=== PATIENT | female | born 1970 | race Caucasian/White ===

== ENCOUNTER → 2016-09-15 | Outpatient (CLI) | payer BC | END | disposition home or self-care (01) | LOC: C.PAPS 09:47 | PROVIDERS: ATTEND Obstetrics & Gynecology | DX: Z01.419 Encounter for gynecological examination (general) (routine) without abnormal findings (principal) ==

== ENCOUNTER → 2016-10-01 | Outpatient (CLI) | payer BC ==
--- NOTE | 2016-10-01 15:58 | MAMMOGRAPHY REPORT ---
BILATERAL DIGITAL DIAGNOSTIC MAMMOGRAM TOMOSYNTHESIS WITH CAD AND TARGETED RIGHT ULTRASOUND: 7 CLINICAL HISTORY: The patient reports an area of focal right breast pain since May 2015, which h as nearly completely resolved in the last 3-4 weeks. She also reports a possible lump in the region which feels less prominent now. She reports that her physician believes the pain may be due to cost ochondritis. TECHNIQUE: Breast tomosynthesis in addition to standard 2D mammography was performed. Current study was also evaluated with a Computer Aided Detection (CAD) system. Bilateral CC and MLO 2-D and elieen synthesis images were obtained. COMPARISON: Comparison is made to exams dated: 09/28/2015 mammogram, 09/27/2014 mammogram, 09/26/2013 mammogram, 09/24/2012 mammogram, 09/23/2011 mammogram, and 09/19/2010 mammogram - [facility]. BREAST COMPOSITION: The tissue of both breasts is heterogeneously dense, which may obscure small ma sses. FINDINGS: A triangle marker geiger the site of pain in the right 3:00 breast. No suspicious masses or other suspicious mammographic abnormalities are noted in the region. The remainder of both breas ts are stable compared to prior exams, without suspicious masses, calcifications, or areas of paulo ectural distortion noted. Targeted ultrasound was performed of the area of prior pain and possible lump pointed out by the pat ient, in the right breast at 3:30, approximately 6 cm from the nipple (with arms down). Sonographic ally normal tissue is seen in this region, without evidence of a mass or other suspicious sonographi c abnormality. IMPRESSION: ACR BI-RADS CATEGORY 2: BENIGN, TARGETED ULTRASOUND ACR BI-RADS CATEGORY 2: BENIGN No suspicious mammographic or sonographic abnormality at the site of right breast pain which has cur rently resolved. There is no mammographic or targeted sonographic evidence of malignancy. Recommen d clinical follow-up, and recommend routine bilateral screening mammograms in one year. The patient has been verbally notified of the results. Approximately 10% of breast cancers are not detected with mammography. A negative mammographic repor t should not delay biopsy if a clinically suggestive mass is present. Ne Mohan M.D. ah/:10/01/2016 14:53:51 Commutator Tester: Guerita Londono RT(R)(M), [facility] letter sent: Normal / BI-RADS Code: ACR BI-RADS Category 2: Benign Ultrasound BI-RADS: ACR BI-RADS Category 2: Benign
== END | disposition home or self-care (01) ==
LOC: C.MAMM 13:57
PROVIDERS: ATTEND Obstetrics & Gynecology
DX: N64.4 Mastodynia (principal)

== ENCOUNTER → 2017-10-23 | Outpatient (CLI) | payer BC ==
--- NOTE | 2017-10-26 12:42 | MAMMOGRAPHY REPORT ---
BILATERAL DIGITAL SCREENING MAMMOGRAM TOMOSYNTHESIS WITH CAD: 10/23/2017 CLINICAL HISTORY: Routine screening. Patient has no complaints. TECHNIQUE: Breast tomosynthesis in addition to standard 2D mammography was performed. Current study was also evaluated with a Computer Aided Detection (CAD) system. COMPARISON: Comparison is made to exams dated: 10/01/2016 ultrasound, 09/28/2015 mammogram, 09/27/2014 m ammogram, 09/26/2013 mammogram, 09/24/2012 mammogram, and 09/23/2011 mammogram - [facility]. BREAST COMPOSITION: The tissue of both breasts is heterogeneously dense, which may obscure small mas ses. FINDINGS: No suspicious masses, calcifications, or areas of architectural distortion are noted in ei ther breast. There has been no significant interval change compared to prior exams. IMPRESSION: ACR BI-RADS CATEGORY 1: NEGATIVE There is no mammographic evidence of malignancy. A 1 year screening mammogram is recommended. The pa tient will receive written notification of the results. Approximately 10% of breast cancers are not detected with mammography. A negative mammographic report should not delay biopsy if a clinically suggestive mass is present. Ne Mohan M.D. ah/:10/23/2017 15:16:25 Veneer Marker: Ciarra BARRAGAN(R)(M), [facility] letter sent: Normal 1/2 BI-RADS Code: ACR BI-RADS Category 1: Negative
== END | disposition home or self-care (01) ==
LOC: C.MAMM 14:16
PROVIDERS: ATTEND Obstetrics & Gynecology
DX: Z12.31 Encounter for screening mammogram for malignant neoplasm of breast (principal)

== ENCOUNTER 2024-08-09 17:41 | Inpatient (IN) ==
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
[2024-08-09 18:16] LABS: Basophils # (auto) 0.02 K/uL (0.00-0.20); Basophils % (auto) 0.1 %; Eosinophils # (auto) 0.01 K/uL (0.00-0.50); Eosinophils % (auto) 0.1 %; Hematocrit (blood only) 39.1 % (37.0-47.0); Hemoglobin 13.5 g/dl (12.0-16.0); Immature Granulocytes # (auto) 0.05 K/uL (0.01-0.20); Immature Granulocytes % (auto) 0.3 %; Lymphocytes # (auto) 1.23 K/uL (1.20-3.40); Lymphocytes % (auto) 8.2 %; Mean Corpuscular Hemoglobin 28.8 pg (25.0-34.0); Mean Corpuscular Hgb Conc 34.5 g/dL (32.0-36.0); Mean Corpuscular Volume 83.5 fL (80.0-100.0); Mean Platelet Volume 9.8 fL (9.4-12.4); Monocytes # (auto) 0.57 K/uL (0.11-0.59); Monocytes % (auto) 3.8 %; Neutrophils # (auto) 13.18 K/uL (1.40-6.50); Neutrophils % (auto) 87.5 %; Platelet Count 287 K/uL (130-400); RDW Coefficient of Variation 12.2 % (11.5-14.5); RDW Standard Deviation 36.7 fL (36.4-46.3); Red Blood Count 4.68 M/uL (4.20-5.40); White Blood Count 15.06 K/ul (4.8-10.8)
[2024-08-09] MEDS: SODIUM CHLORIDE 0.9% 1,000 ML IV ONE (18:20)
[2024-08-09] MEDS ORDERED: MoRPHine SULFATE 4 MG/ML 1 ML CARP\\VIAL IV PRN ×2 (18:29→21:14)
[2024-08-09] MEDS ORDERED: ONDANSETRON INJ 2 MG/ML 2 ML VIAL IV PRN (18:29)
[2024-08-09] MEDS ORDERED: MoRPHine SULFATE 2 MG/ML CARP IV PRN ×2 (18:29→21:14)
[2024-08-09 18:34] LABS: Albumin Globulin Ratio 1.3 (0.9-2); Albumin Level 4.4 gm/dl (3.4-5.0); Calcium 9.7 mg/dl (8.6-10.3); Creatinine Clr Calc Pharmacy 131.3 ml/min; Globulin 3.3 gm/dl (2.5-4.0); Potassium 3.7 mmol/L (3.5-5.1); Total Protein 7.7 gm/dl (6.0-8.3)
[2024-08-09] MEDS: ACETAMINOPHEN 1,000 MG/100 ML VIAL IV STA (18:40)
[2024-08-09] MEDS: PIPERACILLIN/TAZOBACTAM 4.5 GM/100 ML BAG IV ONE (18:57)
[2024-08-09 19:06] LABS: Appearance Urine Clear (Clear); Bacteria Urine Automated None Seen (None Seen); Bilirubin Urine Negative (Negative); Blood Urine Trace (Negative); Cast Urine Automated 0-2 /lpf (0-2); Color Urine Yellow; Epithelial Cell Urine Auto 0-2 /hpf (0-2); Glucose Urine UA Negative (Negative); Ketones Urine Negative (Negative); Leukocyte Esterase Urine Negative (Negative); Nitrite Urine Negative (Negative); Protein Urine 1+ (Negative); RBC Urine Automated 0-2 /hpf (0-2); Specific Gravity Urine > 1.045 (1.000-1.030); Urobilinogen Urine Negative (Negative); WBC Urine Automated 0-5 /hpf (0-5)
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
[2024-08-09] MEDS ORDERED: ACETAMINOPHEN 325 MG TAB PO PRN (21:14)
[2024-08-09] MEDS ORDERED: SODIUM CHLORIDE 0.9% 1,000 ML IV SCH (21:14)
[2024-08-09] MEDS: SODIUM CHLORIDE 0.9% 1,000 ML IV SCH (21:26)
[2024-08-09 21:29] LABS: Pregnancy Test, Serum Negative (Negative)
[2024-08-10] MEDS: PIPERACILLIN/TAZOBACTAM 4.5 GM/100 ML BAG IV SCH (00:15)
[2024-08-10 03:37] LABS: Adenovirus F 40/41 PCR Not Detected (NotDetected); Astrovirus PCR Not Detected (NotDetected); Campylobacter PCR Not Detected (NotDetected); Cryptosporidium PCR Not Detected (NotDetected); Cyclospora cayetanensis PCR Not Detected (NotDetected); Entamoeba histolytica PCR Not Detected (NotDetected); Enteroaggregative E.coli(EAEC) Not Detected (NotDetected); Enteropathogenic E.coli (EPEC) Not Detected (NotDetected); Enterotoxigenic E.coli (ETEC) Not Detected (NotDetected); Giardia lamblia PCR Not Detected (NotDetected); Norovirus GI/GII PCR Not Detected (NotDetected); Plesiomonas shigelloides PCR Not Detected (NotDetected); Rotavirus A PCR Not Detected (NotDetected); Salmonella PCR Not Detected (NotDetected); Sapovirus PCR Not Detected (NotDetected); Shiga-like Toxin E.coli (STEC) Not Detected (NotDetected); Shigella/Enteroinvasive E.coli Not Detected (NotDetected); Vibrio cholerae PCR Not Detected (NotDetected); Vibrio species PCR Not Detected (NotDetected); Yersinia enterocolitica PCR Not Detected (NotDetected)
[2024-08-10 06:10] LABS: Hematocrit (blood only) 34.6 % (37.0-47.0); Hemoglobin 11.6 g/dl (12.0-16.0); Mean Corpuscular Hemoglobin 28.6 pg (25.0-34.0); Mean Corpuscular Hgb Conc 33.5 g/dL (32.0-36.0); Mean Corpuscular Volume 85.4 fL (80.0-100.0); Mean Platelet Volume 10.1 fL (9.4-12.4); Platelet Count 238 K/uL (130-400); RDW Coefficient of Variation 12.1 % (11.5-14.5); RDW Standard Deviation 37.5 fL (36.4-46.3); Red Blood Count 4.05 M/uL (4.20-5.40); White Blood Count 8.48 K/ul (4.8-10.8)
[2024-08-10 06:26] LABS: Albumin Level 3.5 gm/dl (3.4-5.0); BUN Creatinine Ratio 27.9 (10-20); Bilirubin Direct 0.3 mg/dl (0-0.2); Bilirubin,Total 1.7 mg/dl (0.2-1.0); Calcium 8.6 mg/dl (8.6-10.3); Creatinine Clr Calc Pharmacy 152.6 ml/min; Potassium 3.5 mmol/L (3.5-5.1)
--- NOTE | 2024-08-10 07:51 | Surgery Progress Note ---
Date of Service August 10, 2024 Assessment & Plan (1) Colitis with abscess: Plan: feeling slight improvement in overall and pain VSS afebrile, wbc wnl 8 (15) abd soft , TTP Right and left LQ denies dysuria + loose stools, denies noting blood continue NPO , IV fluids/abx at this time gen surg will follow as above. 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 would stay on sips/chips only another 24 hours. no urgent indication for surgical intervention. will continue to follow along Admission and Anticipated Discharge Date Admission Date: August 09, 2024 Subjective pt reports feeling slightly better overall and slight pain improvement this AM vs admission Review of Systems Constitutional: no fever and no chills Respiratory: no dyspnea Cardiovascular: no chest pain Gastrointestinal: + abdominal pain and + diarrhea/loose st ools; no nausea and no vomiting Genitourinary: no dysuria Physical Exam Constitutional: cooperative and comfortable; no acute distress Respiratory: normal respiratory effort; no respiratory distress Cardiovascular: Rate/Rhythm: regular rate Gastrointestinal (Abdomen): Inspection/Auscultation: abdomen not distended Percussion/Palpation: + abdomen tender and abdomen soft Results & Data Vital Signs (Past 12 Hours) Vital Signs Temp Pulse Pulse Resp BP Pulse Ox O2 Del Method 08/10/24 07:16 98.4 F 68 18 98/59 L 99 Room Air 08/09/24 23:12 98.2 F 68 12 106/65 100 Room Air 08/09/24 20:25 105/61 08/09/24 20:00 61 16 99 Room Air Results CBC w Diff Results: RBC 4.05 M/uL (4.20-5.40) L 08/10/24 WBC 8.48 K/ul (4.8-10.8) 08/10/24 Hgb 11.6 g/dl (12.0-16.0) L 08/10/24 Hct 34.6 % (37.0-47.0) L 08/10/24 MCV 85.4 fL (80.0-100.0) 08/10/24 MCH 28.6 pg (25.0-34.0) 08/10/24 MCHC 33.5 g/dL (32.0-36.0) 08/10/24 RDW Standard Deviation 37.5 fL (36.4-46.3) 08/10/24 RDW Coefficient of Variation 12.1 % (11.5-14.5) 08/10/24 Plt Count 238 K/uL (130-400) 08/10/24 MPV 10.1 fL (9.4-12.4) 08/10/24 Neutrophils (%) (Auto) 87.5 % 08/09/24 Lymphocytes (%) (Auto) 8.2 % 08/09/24 Monocytes # (Auto) 0.57 K/uL (0.11-0.59) 08/09/24 Eosinophils # (Auto) 0.01 K/uL (0.00-0.50) 08/09/24 Immature Granulocyte % (Auto) 0.3 % 08/09/24 Neutrophils # (Auto) 13.18 K/uL (1.40-6.50) H 08/09/24 Lymphocytes # (Auto) 1.23 K/uL (1.20-3.40) 08/09/24 Monocytes # (Auto) 0.57 K/uL (0.11-0.59) 08/09/24 Eosinophils # (Auto) 0.01 K/uL (0.00-0.50) 08/09/24 Basophils # (Auto) 0.02 K/uL (0.00-0.20) 08/09/24 Immature Granulocyte # (Auto) 0.05 K/uL (0.01-0.20) 5 PG Care Time/CCT Total # of Minutes Spent Total Time Spent with Patient: Total time spent is greater than 50% in coordination of care (as documented) at patient's floor/unit and/or counseling patient: Coding Level of Care Code 05321 SUB INP/OBS CARE 08/27MIN Diagnoses Colitis with abscess K52.9; K63.0
--- NOTE | 2024-08-10 16:45 | Hospitalist Progress Note ---
Date of Service August 10, 2024 Assessment & Plan (1) Colitis with abscess: Plan: 53-year-old female with history of uncomplicated diverticulosis presenting with 3 days of severe lower abdominal discomfort, cramping, diarrhea with tenesmus. She has been afebrile and hemodynamically stable. Nontoxic in appearance but does have significant lower abdominal discomfort. Labs are significant for elevated WBC = 15.[address] of the abdomen performed outpatient with results above. Findings concerning for acute diverticulitis with perforation and abscess formation. -GI panel/C diff negative -CBC shows resolution of leukocytosis - BMP w/ stable electrolytes and renal function -Procal negative on admission. -CTAP: nonspecific colitis w/ evidence of perforation and likely abscess formation. -General surgery following - maintain NPO status for additional 24 hours, okay for sips/chips. No surgical intervention required at this time. -Zosyn IV q8h -Tylenol and Morphine for pain. -Patient may benefit from repeat imaging after abx have been completed to monitor for abscess resolution. -Will need CN in 6-8 weeks for diverticulitis follow up. AM CBC, CMP Plan Prophylaxislow risk for DVT Codefull per discussion with patient Dispositionadmit to medical floor Admission and Anticipated Discharge Date Admission Date: August 09, 2024 Subjective Patient seen and examined this morning. Patient reports still with abdomen pain, most prominently in her lower quadrants. patient also still experiencing diarrhea. Denies any overt signs of GI bleeding in her stool. Denies N/V. Physical Exam Constitutional: WD/WN, vitals as above Respiratory: normal respiratory effort, lungs clear to auscultation Cardiovascular: RRR, no murmur, no edema Gastrointestinal (Abdomen): +BS, tender to mild palpation generalize d Psychiatric: A+Ox3, euthymic affect Results & Data Results & Data Vital Signs (Past 12 Hours) Vital Signs Temp Pulse Resp BP Pulse Ox O2 Del Method 08/10/24 14:50 36.7 C 63 18 105/65 Room Air 08/10/24 07:16 36.9 C 68 18 98/59 L 99 Room Air PG Care Time/CCT Total # of Minutes Spent Total Time Spent with Patient: Total time spent is greater than 50% in coordination of care (as documented) at patient's floor/unit and/or counseling patient: Coding Level of Care Code 55772 SUB INP/OBS CARE 2/35MIN Diagnoses Colitis with abscess K52.9; K63.0
[2024-08-10] MEDS: SODIUM CHLORIDE 0.9% 1,000 ML IV SCH (21:18)
[2024-08-11 08:32] LABS: Hematocrit (blood only) 38.9 % (37.0-47.0); Hemoglobin 13.2 g/dl (12.0-16.0); Mean Corpuscular Hemoglobin 28.8 pg (25.0-34.0); Mean Corpuscular Hgb Conc 33.9 g/dL (32.0-36.0); Mean Corpuscular Volume 84.7 fL (80.0-100.0); Platelet Count 336 K/uL (130-400); RDW Coefficient of Variation 12.1 % (11.5-14.5); RDW Standard Deviation 36.8 fL (36.4-46.3); Red Blood Count 4.59 M/uL (4.20-5.40); White Blood Count 10.49 K/ul (4.8-10.8)
--- NOTE | 2024-08-11 09:08 | Surgery Progress Note ---
Date of Service August 11, 2024 Assessment & Plan (1) Colitis with abscess: Plan: Patient here w/ colitis w/ 3cm abscess formation wbc 10. pt afebrile she feels clinically well overall. abdomen soft and not overly tender will trial patient on clear liquids today continue iv abx as above. feeling much better. will monitor wbc. clears today. continue IV antibiotics. making good progress Admission and Anticipated Discharge Date Admission Date: August 09, 2024 Subjective Patient reports feeling much better overall. Abdominal pain is improved. No nausea/vomiting and having + bowel function. Physical Exam Physical Exam: awake/alert, no distress Respiratory: normal respiratory effort Gastrointestinal (Abdomen): Inspection/Auscultation: abdomen not distended Percussion/Palpation: abdomen soft; abdomen nontender Results & Data Vital Signs (Past 12 Hours) Vital Signs Temp Pulse Resp BP Pulse Ox O2 Del Method 08/11/24 07:22 98.4 F 76 16 96/60 L 98 Room Air PG Care Time/CCT Total # of Minutes Spent Total Time Spent with Patient: Total time spent is greater than 50% in coordination of care (as documented) at patient's floor/unit and/or counseling patient: Coding Level of Care Code 69653 SUB INP/OBS CARE 08/27MIN Diagnoses Colitis with abscess K52.9; K63.0
[2024-08-11 09:15] LABS: C Reactive Protein 10.73 mg/dl (0-0.5); Calcium 9.2 mg/dl (8.6-10.3); Creatinine Clr Calc Pharmacy 139.6 ml/min; Potassium 3.2 mmol/L (3.5-5.1)
[2024-08-11] MEDS: POTASSIUM CHLORIDE CRTAB 20 MEQ TABCR PO STA (11:12)
--- NOTE | 2024-08-11 16:36 | Hospitalist Progress Note ---
Date of Service August 11, 2024 Assessment & Plan (1) Colitis with abscess: Plan: 53-year-old female with history of uncomplicated diverticulosis presenting with 3 days of severe lower abdominal discomfort, cramping, diarrhea with tenesmus. She has been afebrile and hemodynamically stable. Nontoxic in appearance but does have significant lower abdominal discomfort. Labs are significant for elevated WBC = 15.[address] of the abdomen performed outpatient with results above. Findings concerning for acute diverticulitis with perforation and abscess formation. -GI panel/C diff negative -CBC shows resolution of leukocytosis - BMP w/ low K of 3.2 s/p 40meq PO potassium. Stable renal function. -Procal negative on admission. -CTAP: nonspecific colitis w/ evidence of perforation and likely abscess formation. -General surgery following - advanced to clear liquid diet. No surgical intervention required at this time. -Zosyn IV q8h -Tylenol and Morphine for pain. -Patient may benefit from repeat imaging after abx have been completed to monitor for abscess resolution. -Will need CN in 6-8 weeks for diverticulitis follow up. AM CBC, CMP Plan Prophylaxislow risk for DVT Codefull per discussion with patient Dispositionadmit to medical floor Admission and Anticipated Discharge Date Admission Date: August 09, 2024 Subjective Patient seen and examined this morning. patient reports her abdominal pain has improved. she had tolerated a clear liquid diet for breakfast. she also reports her BM's have slowed down. Physical Exam Constitutional: WD/WN, vitals as above Eyes: PERRL, conjunctivae normal, anicteric sclerae Gastrointestinal (Abdomen): +BS, tenderness to palpation generalized abdomen but improved from yesterday Psychiatric: A+Ox3, euthymic affect Results & Data Results & Data Vital Signs (Past 12 Hours) Vital Signs Temp Pulse Resp BP Pulse Ox O2 Del Method 08/11/24 15:34 36.9 C 70 18 100/61 100 Room Air 08/11/24 07:22 36.9 C 76 16 96/60 L 98 Room Air PG Care Time/CCT Total # of Minutes Spent Total Time Spent with Patient: Total time spent is greater than 50% in coordination of care (as documented) at patient's floor/unit and/or counseling patient: Coding Level of Care Code 19800 SUB INP/OBS CARE 2/35MIN Diagnoses Colitis with abscess K52.9; K63.0
[2024-08-11] MEDS: HYDROCORTISONE 2.5% CR 30 GM TUBE EXT PRN (23:24)
[2024-08-12 07:24] LABS: Hematocrit (blood only) 31.8 % (37.0-47.0); Mean Corpuscular Hemoglobin 29.3 pg (25.0-34.0); Mean Corpuscular Hgb Conc 34.6 g/dL (32.0-36.0); Mean Corpuscular Volume 84.8 fL (80.0-100.0); Platelet Count 297 K/uL (130-400); RDW Coefficient of Variation 11.9 % (11.5-14.5); RDW Standard Deviation 36.4 fL (36.4-46.3); Red Blood Count 3.75 M/uL (4.20-5.40); White Blood Count 6.35 K/ul (4.8-10.8)
[2024-08-12 07:57] LABS: C Reactive Protein 5.45 mg/dl (0-0.5); Calcium 8.6 mg/dl (8.6-10.3); Creatinine Clr Calc Pharmacy 142.7 ml/min; Potassium 3.2 mmol/L (3.5-5.1)
--- NOTE | 2024-08-12 08:01 | Surgery Progress Note ---
Date of Service August 12, 2024 Assessment & Plan (1) Colitis with abscess: Plan: Patient here w/ colitis w/ 3cm abscess formation wbc 6. pt afebrile she feels clinically well overall. abdomen soft and not overly tender having some pain/cramping prior to BMs then she has one and pain is relieved we can trial pt on fulls today and see how she fairs, if worsening symptoms back diet down to clears continue iv abx as above. feeling well. oral intake did not worsen her symptoms. she is having frequent loose bm's.... will add questran. can advance to full liquids and see how she does. Admission and Anticipated Discharge Date Admission Date: August 09, 2024 Subjective Patient feeling fairly well. Does describe pain in the abdomen such as cramping prior to having a BM. Once she has a BM this resolves. Otherwise she is tolerating clears, no n/v. Physical Exam Physical Exam: awake/alert, no distress Gastrointestinal (Abdomen): Inspection/Auscultation: abdomen not distended Percussion/Palpation: abdomen soft; abdomen nontender Results & Data Vital Signs (Past 12 Hours) Vital Signs Temp Pulse Resp BP Pulse Ox O2 Del Method 08/12/24 07:35 98.4 F 70 20 95/55 L 96 Room Air 08/11/24 20:27 98.5 F 71 14 106/63 96 Room Air PG Care Time/CCT Total # of Minutes Spent Total Time Spent with Patient: Total time spent is greater than 50% in coordination of care (as documented) at patient's floor/unit and/or counseling patient: Coding Level of Care Code 76711 SUB INP/OBS CARE 08/27MIN Diagnoses Colitis with abscess K52.9; K63.0
[2024-08-12] MEDS: POTASSIUM CHLORIDE CRTAB 20 MEQ TABCR PO STA (10:45)
--- NOTE | 2024-08-12 16:22 | Hospitalist Progress Note ---
Date of Service August 12, 2024 Assessment & Plan (1) Colitis with abscess: Plan: 53-year-old female with history of uncomplicated diverticulosis presenting with 3 days of severe lower abdominal discomfort, cramping, diarrhea with tenesmus. She has been afebrile and hemodynamically stable. Nontoxic in appearance but does have significant lower abdominal discomfort. Labs are significant for elevated WBC = 15.[address] of the abdomen performed outpatient with results above. Findings concerning for acute diverticulitis with perforation and abscess formation. -GI panel/C diff negative -CBC shows resolution of leukocytosis - BMP w/ low K of 3.2 s/p 40meq PO potassium. Stable renal function. -CRP downtrending (5.45) -Procal negative on admission. -CTAP: nonspecific colitis w/ evidence of perforation and likely abscess formation. -General surgery following - advanced to full liquid diet. added Questran to aide with diarrhea BID. No surgical intervention required at this time. -Zosyn IV q8h -Tylenol and Morphine for pain. -Patient may benefit from repeat imaging after abx have been completed to monitor for abscess resolution. -Will need CN in 6-8 weeks for diverticulitis follow up. AM CBC, BMP Plan Rash - patient's brought in her typical cream she uses for them. if prescription, made RN aware that pharmacy would have to be notified. Prophylaxislow risk for DVT Codefull per discussion with patient Dispositionadmit to medical floor Admission and Anticipated Discharge Date Admission Date: August 09, 2024 Subjective Patient seen and examined this morning. patient still with episodes of diarrhea. reports her abdominal pain is improving. patient feels the most pain after eating but states that it is tolerate. she was advanced to a full liquid diet today. patient also reports she has a history of experiencing rashes and noticed she had a rash breakout. she uses medicated cream at home that her was going to bring in for her. Physical Exam Constitutional: WD/WN, vitals as above Eyes: PERRL, conjunctivae normal, anicteric sclerae Respiratory: normal respiratory effort, lungs clear to auscultation Cardiovascular: RRR, no murmur, no edema Gastrointestinal (Abdomen): +BS, tenderness to palpation in lower ab domen. soft. Psychiatric: A+Ox3, euthymic affect Results & Data Results & Data Vital Signs (Past 12 Hours) Vital Signs Temp Pulse Resp BP Pulse Ox O2 Del Method 08/12/24 15:06 37.1 C 74 20 100/64 94 Room Air 08/12/24 07:35 36.9 C 70 20 95/55 L 96 Room Air PG Care Time/CCT Total # of Minutes Spent Total Time Spent with Patient: Total time spent is greater than 50% in coordination of care (as documented) at patient's floor/unit and/or counseling patient: Coding Level of Care Code 91363 SUB INP/OBS CARE 2/35MIN Diagnoses Colitis with abscess K52.9; K63.0
[2024-08-12 19:27] VITALS: RESP 14
[2024-08-12] MEDS: CHOLESTYRAMINE LIGHT 4 GM PKT PO SCH (22:21)
--- NOTE | 2024-08-13 06:36 | Surgery Progress Note ---
Date of Service August 13, 2024 Assessment & Plan (1) Colitis with abscess: Plan: Patient here w/ colitis w/ 3cm abscess formation -AM WBC pending at this time, however she is afebrile and overall is improving -Pain well controlled but does continue with cramping prior to BM but afterwards this does subside. -Continue IV antibiotics -Once AM labs are back and WBC continues to be improved, we can try to advance patient to low fiber diet today Admission and Anticipated Discharge Date Admission Date: August 09, 2024 Supervising Physician Co-Signing Physician Notes Patient seen examined, labs reviewed, agree with above. Admitted with colitis with small abscess, responding to nonoperative management with antibiotics. She is tolerating full liquids and has been advance to low fiber which she will try for lunch. She is not having minimal discomfort. She has had multiple bowel movements but these are slowing down becoming more solid. Abdomen soft, minimally tender to palpation in suprapubic and left lower quadrant. WBC normal. Advance to low fiber diet. If tolerates potential discharge today, though she may benefit from another 24 hours of IV antibiotics. She should go home on a low fiber diet, please provide instructions. She can follow-up as an outpatient. Will likely need GI referral and colonoscopy as outpatient in 6 to 8 weeks. Subjective Patient seen and evaluated this morning. She states she is feeling well and pain is controlled. Passing gas and having BMs, still having some cramping when moving her bowels Has been tolerating full liquids since yesterday without any reported issues AM labs pending but WBC has been improving since admission and patient is afebrile. Physical Exam Constitutional: WD/WN, vitals as above Respiratory: normal respiratory effort, lungs clear to auscultation Cardiovascular: RRR, no murmur, no edema Gastrointestinal (Abdomen): Abdomen soft, nondistended, and nontender. Skin: no rashes, warm and dry Results & Data Vital Signs (Past 12 Hours) Vital Signs Temp Pulse Resp BP Pulse Ox O2 Del Method 08/12/24 19:26 36.7 C 69 14 108/71 97 Room Air PG Care Time/CCT Total # of Minutes Spent Total Time Spent with Patient: Total time spent is greater than 50% in coordination of care (as documented) at patient's floor/unit and/or counseling patient: Coding Level of Care Code 30998 SUB INP/OBS CARE 1/25MIN Medical Decision Making Straight Forward Diagnoses Colitis with abscess K52.9; K63.0
[2024-08-13 07:09] LABS: Hematocrit (blood only) 33.7 % (37.0-47.0); Hemoglobin 11.5 g/dl (12.0-16.0); Mean Corpuscular Hgb Conc 34.1 g/dL (32.0-36.0); Mean Corpuscular Volume 85.1 fL (80.0-100.0); Mean Platelet Volume 9.8 fL (9.4-12.4); Platelet Count 293 K/uL (130-400); RDW Coefficient of Variation 11.9 % (11.5-14.5); RDW Standard Deviation 36.5 fL (36.4-46.3); Red Blood Count 3.96 M/uL (4.20-5.40); White Blood Count 6.41 K/ul (4.8-10.8)
[2024-08-13 07:37] LABS: C Reactive Protein 3.81 mg/dl (0-0.5); Calcium 8.9 mg/dl (8.6-10.3); Creatinine Clr Calc Pharmacy 115.1 ml/min; Potassium 3.5 mmol/L (3.5-5.1)
[2024-08-13 08:03] VITALS: BP 104/67; PULSE 81; TEMP 98.2; O2SAT 99
[2024-08-13] MEDS ORDERED: Nursing to Pharmacy Communication SCH (08:15)
--- NOTE | 2024-08-13 13:08 | Discharge Summary ---
Discharge Summary Date of Service August 13, 2024 Principal Dx & Hospital Course #1 = Principal Diagnosis (1) Colitis with abscess: 53-year-old female with history of uncomplicated diverticulosis presenting with 3 days of severe lower abdominal discomfort, cramping, diarrhea with tenesmus. She has been afebrile and hemodynamically stable. Nontoxic in appearance but does have significant lower abdominal discomfort. Labs are significant for elevated WBC = 15.[address] of the abdomen performed outpatient with results above. Findings concerning for acute diverticulitis with perforation and abscess formation. -GI panel/C diff negative -CBC shows resolution of leukocytosis - BMP w/ stable electrolytes and renal function -CRP downtrending (3.81) -Procal negative on admission. -CTAP: nonspecific colitis w/ evidence of perforation and likely abscess formation. -General surgery following - advanced to low fiber diet -Zosyn IV q8h inpatient due to allergic of augmentin, patient discharged home on additional 10 days of Cipro + Flagyl -Tylenol for pain. -Patient may benefit from repeat imaging after abx have been completed to monitor for abscess resolution. - defer to PCP. -Will need CN in 6-8 weeks for diverticulitis follow up. - recommend low fiber diet 4-6 weeks on discharge. Plan Rash - patient's brought in her typical cream she uses for them. Dischaged home 08/13. Admission HPI Per Admitting Provider Aileen Gregory is a pleasant 53-year-old female no significant past medical history presenting from home with abdominal pain. On the evening of 08/07/2024 patient developed severe, sharp pain in her lower abdomen. The pain was continuous. On 08/08/2024 she felt very tired and spent most of the day sleeping. Today she continued to feel tired and had no energy. Pain has been ongoing. She reports significant discomfort with bowel movements. She has had some rectal pressure and tenesmus as well as diaphoresis that occurs while she is having her bowel movement. She has severe lower abdominal cramping as well. Stools have been watery today with no blood or mucus noted. Patient just completed a 10-day course of Augmentin on 08/08/2024 which was prescribed for a sinus infection Patient denies fever or chills. Denies nausea/vomiting/chest pain/cough/ shortness of breath. No sick contacts. No questionable food intake or family members with similar symptoms. No history of prior. she had a screening colonoscopy 4 years ago which showed diverticula low cysts. She has not had any complications with this since. No history of diverticulitis, no history of diverticular bleeds In the ER, patient afebrile and hemodynamically stable. Pain control with Tylenol and morphine ER course: Normal saline x 1 L Tylenol x 1 g Zosyn x 4.5 g Discharge Exam Constitutional WD/WN, vitals as above Eyes PERRL, conjunctivae normal, anicteric sclerae Respiratory normal respiratory effort, lungs clear to auscultation Cardiovascular RRR, no murmur, no edema Gastrointestinal (Abdomen) normal bowel sounds, soft, nontender, no hepatosplenomegaly Psychiatric A+Ox3, euthymic affect Discharge Plan Discharge Items Patient Disposition: Home - Self-Care Reason For Visit: ABDOMINAL PAIN, DIARRHEA Discharge Diagnosis: Colitis with abscess Activity: Resume your previous activity Non-emergency contact: Primary Care Provider Call non-emergency contact if: you have any medication questions Follow-up/Referrals: Jamal Ku [Primary Care Provider] - Diet: Low Fiber Addtl Attending Provider Instructions: Mrs. Gregory, You were recently hospitalized for abdominal pain. You were found to have colitis with abscess formation on imaging. You were treated appropriately with IV antibiotics and were evaluated by our surgery team. Please see recommendations below regarding discharge. 1. Please take Ciprofloxacin and Flagyl (two antibiotics) twice daily for the next 10 days. Your first dose will be this evening 08/13. Please take with food to avoid GI upset. Please also take a probiotic. 2. Please use Colestid 1-2 x daily for continued diarrhea. If you experience constipation, please stop taking this medication. 3. Please use Tylenol for pain. 4. Please stay on a low fiber diet for 4- 6 weeks following discharge. 5. Please follow up with your PCP to discuss the needs for a colonoscopy. If you develop any worsening abdominal pain, blood in stool, fevers, or chills please report back to the ER for further care. Sincerely, Kelly Harvey PA-C Pending Studies at Discharge: No Stand-Alone Forms: My [employer], Work/School Release, Smoking Cessation Medications and DC Order Prescriptions: New colestipol [Colestid] 1 gram tablet 1 g PO BID Qty: 30 0RF ciprofloxacin HCl 500 mg tablet 500 mg PO BID Qty: 20 0RF metronidazole 500 mg tablet 500 mg PO BID Qty: 20 0RF Continued valacyclovir 500 mg tablet 500 mg PO DAILY PRN (Reason: herpes breakout) Qty: 30 2RF multivitamin [Daily Multi-Vitamin] Tablet 1 tab PO QAM calcium citrate-vitamin D3 315 mg-5 mcg (200 unit) tablet 1 tab PO QAM zolmitriptan [Zomig] 5 mg tablet 5 mg PO Q2H PRN (Reason: Migraine Headache) Rx Instructions: do not exceed 2 doses per 24 hrs Discharge Orders: Discharge Order (Routine); Ordered 08/13/24 Ordered By: Kelly Harvey Admission Data Admit Date/Time: 08/09/24 19:38 Attending Provider: Allen Ortiz Admit Provider: Pratima Chen Primary Care Provider: Jamal Ku Other Providers: Eleazar Borden; Pratima Chen Hospital Stay Data Consultations 08/09/24 19:15 ED Decision to Admit Stat 08/09/24 19:38 Consult General Surgery Routine Pending Results Patient Have Any Pending Studies at Discharge: No Discharge Instructions Given to Patient (Per Discharging Provider) Mrs. Gregory, [place] were recently hospitalized for abdominal pain. You were found to have colitis with abscess formation on imaging. You were treated appropriately with IV antibiotics and were evaluated by our surgery team. Please see recommendations below regarding discharge. 1. Please take Ciprofloxacin and Flagyl (two antibiotics) twice daily for the next 10 days. Your first dose will be this evening 08/13. Please take with food to avoid GI upset. Please also take a probiotic. 2. Please use Colestid 1-2 x daily for continued diarrhea. If you experience constipation, please stop taking this medication. 3. Please use Tylenol for pain. 4. Please stay on a low fiber diet for 4- 6 weeks following discharge. 5. Please follow up with your PCP to discuss the needs for a colonoscopy. If you develop any worsening abdominal pain, blood in stool, fevers, or chills please report back to the ER for further care. Sincerely, Kelly Harvey PA-C Total Time Total Time Spent Total Time Spent (In Minutes): 45 Total Time Includes: Examination of the Patient, Discharge Planning, Medication Reconciliation and Communication With Other Providers Coding Level of Care Code 79002 INP/OBS DISCH >30 MIN Diagnoses Colitis with abscess K52.9; K63.0
== END 2024-08-13 15:13 | disposition home or self-care (01) | DRG 392 ==
LOC: ED 17:41 → 3W 19:38 → SUATTDRO 19:38 → 3W 20:33

== ENCOUNTER 2024-11-04 17:59 | Inpatient (IN) ==
[2024-11-04 18:49] LABS: Basophils # (auto) 0.03 K/uL (0.00-0.20); Basophils % (auto) 0.3 %; Eosinophils % (auto) 0.9 %; Hematocrit (blood only) 42.9 % (37.0-47.0); Hemoglobin 14.6 g/dl (12.0-16.0); Immature Granulocytes # (auto) 0.03 K/uL (0.01-0.20); Immature Granulocytes % (auto) 0.3 %; Lymphocytes # (auto) 1.71 K/uL (1.20-3.40); Lymphocytes % (auto) 14.8 %; Mean Corpuscular Volume 85.1 fL (80.0-100.0); Mean Platelet Volume 10.2 fL (9.4-12.4); Monocytes # (auto) 0.56 K/uL (0.11-0.59); Monocytes % (auto) 4.8 %; Neutrophils # (auto) 9.13 K/uL (1.40-6.50); Neutrophils % (auto) 78.9 %; Platelet Count 272 K/uL (130-400); RDW Coefficient of Variation 12.7 % (11.5-14.5); RDW Standard Deviation 39.4 fL (36.4-46.3); Red Blood Count 5.04 M/uL (4.20-5.40); White Blood Count 11.56 K/ul (4.8-10.8)
[2024-11-04 19:03] LABS: Albumin Globulin Ratio 1.6 (0.9-2); Albumin Level 4.9 gm/dl (3.4-5.0); BUN Creatinine Ratio 24.3 (10-20); Bilirubin,Total 1.1 mg/dl (0.2-1.0); Calcium 10.4 mg/dl (8.6-10.3); Potassium 3.9 mmol/L (3.5-5.1); Total Protein 7.9 gm/dl (6.0-8.3)
[2024-11-04] MEDS: OPTIRAY 320 100ml IV ONE (19:29)
[2024-11-04 19:51] LABS: Appearance Urine Clear (Clear); Bilirubin Urine Negative (Negative); Blood Urine Negative (Negative); Color Urine Yellow; Glucose Urine UA Negative (Negative); Ketones Urine Negative (Negative); Leukocyte Esterase Urine Negative (Negative); Nitrite Urine Negative (Negative); Protein Urine Negative (Negative); Specific Gravity Urine 1.025 (1.000-1.030); Urobilinogen Urine Negative (Negative); pH Urine 5.5 (4.5-7.5)
--- NOTE | 2024-11-04 20:07 | CT Scan Report ---
CT ABDOMEN and PELVIS with INTRAVENOUS CONTRAST HISTORY: Abdominal pain TECHNIQUE: CT abdomen and pelvis with contrast. IV CONTRAST: 100 mL of OMNIPAQUE 300 ENTERIC CONTRAST: Not Given COMPARISON: CT abdomen pelvis August 09, 2024. FINDINGS: LOWER CHEST: Unremarkable LIVER: Unchanged 7 mm hypodensity of the liver in the left lobe is likely a cyst or hemangioma. GALLBLADDER/BILIARY: Unremarkable gallbladder. No abnormal biliary dilatation. SPLEEN: Unremarkable. PANCREAS: Unremarkable. ADRENALS: Unremarkable. KIDNEYS: Unremarkable. No stones or hydronephrosis identified. PERITONEUM/RETROPERITONEUM. No lymphadenopathy by size criteria. No aortic aneurysm. GASTROINTESTINAL: No obstruction. No appendix. There are longstanding inflammatory changes in the rectosigmoid. Small extraluminal gas containing fluid abutting the sigmoid colon, for example series 2, image 63; series 300 image 69). REPRODUCTIVE: No pelvic masses identified. URINARY BLADDER: Unremarkable. BONES: No acute findings. IMPRESSION: Long segment inflammatory changes of the rectosigmoid suggesting colitis and/or diverticulitis. Small extraluminal fluid abutting the sigmoid colon containing gas. Patient demonstrated larger abscess in the prior scan from August 2024. It is uncertain if this finding represents residual versus a recurrent process. Please clinically correlate with symptoms. Other complications such as fistula formation is difficult to exclude given crowding of the bowel structures in this area Electronically signed by Vimal Holland 11-04-2024 8:07 PM
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
[2024-11-04] MEDS: PIPERACILLIN/TAZOBACTAM 4.5 GM/120 ML BAG IV ONE (20:48)
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
[2024-11-04] MEDS: ACETAMINOPHEN 1,000 MG/100 ML VIAL IV STA (21:42)
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
[2024-11-04] MEDS ORDERED: ACETAMINOPHEN 325 MG TAB PO PRN (23:30)
[2024-11-05] MEDS ORDERED: MoRPHine SULFATE 4 MG/ML 1 ML CARP\\VIAL IV PRN (01:17)
[2024-11-05] MEDS ORDERED: MoRPHine SULFATE 2 MG/ML CARP IV PRN (01:17)
[2024-11-05] MEDS: PIPERACILLIN/TAZOBACTAM 4.5 GM/100 ML BAG IV SCH (02:11)
[2024-11-05] MEDS: LACTATED RINGER'S 1,000 ML IV ONE (02:11)
[2024-11-05] MEDS: LACTATED RINGER'S 1,000 ML IV SCH (02:12)
--- NOTE | 2024-11-05 05:48 | Surgery Progress Note ---
Date of Service November 05, 2024 Assessment & Plan (1) Diverticulitis: Plan: The patient has been admitted on the hospitalist service. From surgery perspective we recommend the following: Continue n.p.o. status with an occasional ice chips for comfort; consideration will be given to advancing diet beginning with clear liquids as she continues to improve Continue to hydrate with IV fluids while n.p.o. and until oral intake can be advanced and is reliable Continue antibiotics in the form of Zosyn Check a.m. labs when available Mobilize as able As noted previously, it would be preferable for patient to have an up-to-date colonoscopy once she has recovered from this acute episode Lovenox is in place for DVT prevention Additional recommendations to be forthcoming based on her clinical course as it unfolds As above. Feeling better already. No urgent indication for surgical intervention. We will need to postpone her colonoscopy scheduled for this Thursday and push it back 2 or 3 months. Would keep her n.p.o. today if she continues to improve clear liquids tomorrow. I would probably recommend a more prolonged oral antibiotic course at discharge as perhaps we undertreated her the first time. Admission and Anticipated Discharge Date Admission Date: November 04, 2024 Subjective Patient is currently resting comfortably in bed. She reports that her abdominal pain present at time of admission has begin to improve. She denies any nausea or vomiting. No bowel movement or flatus since admission. She denies any fevers. Physical Exam Gastrointestinal (Abdomen): Abdomen is soft without distention. Patient has some slight pain with palpation in her lower abdomen (this appears to be improved from what was noted during my exam at time of admission). No rebound tenderness or guarding noted. Results & Data Vital Signs (Past 12 Hours) Vital Signs Temp Pulse Pulse Resp BP BP Pulse Ox 11/04/24 23:30 36.6 C 74 16 98/62 L 95 11/04/24 23:00 11/04/24 22:51 69 13 96 11/04/24 22:30 102/57 L 11/04/24 22:30 102/57 L 11/04/24 22:30 102/57 L 11/04/24 22:30 102/57 L 11/04/24 22:30 102/57 L 11/04/24 22:30 102/57 L 11/04/24 22:12 79 13 107/72 97 11/04/24 21:33 71 17 92/63 L 100 11/04/24 21:03 71 18 113/64 100 11/04/24 21:00 113/64 11/04/24 20:54 70 13 100 11/04/24 20:33 68 14 122/68 99 11/04/24 20:30 122/68 11/04/24 20:24 72 13 99 11/04/24 20:03 71 22 104/69 100 11/04/24 20:03 77 11/04/24 20:00 104/69 11/04/24 20:00 104/69 11/04/24 19:51 72 17 119/87 97 11/04/24 18:16 36.9 C 94 H 20 125/82 100 O2 Del Method 11/04/24 23:30 Room Air 11/04/24 23:00 Room Air 11/04/24 22:51 11/04/24 22:30 11/04/24 22:30 11/04/24 22:30 11/04/24 22:30 11/04/24 22:30 11/04/24 22:30 11/04/24 22:12 11/04/24 21:33 11/04/24 21:03 11/04/24 21:00 11/04/24 20:54 11/04/24 20:33 11/04/24 20:30 11/04/24 20:24 11/04/24 20:03 11/04/24 20:03 11/04/24 20:00 11/04/24 20:00 11/04/24 19:51 Room Air 11/04/24 18:16 Room Air PG Care Time/CCT Total # of Minutes Spent Total Time Spent with Patient: Total time spent is greater than 50% in coordination of care (as documented) at patient's floor/unit and/or counseling patient: Coding Level of Care Code 56347 SUB INP/OBS CARE 08/27MIN Diagnoses Diverticulitis K57.92
[2024-11-05 06:24] LABS: Basophils # (auto) 0.02 K/uL (0.00-0.20); Basophils % (auto) 0.2 %; Eosinophils # (auto) 0.01 K/uL (0.00-0.50); Eosinophils % (auto) 0.1 %; Hemoglobin 12.7 g/dl (12.0-16.0); Immature Granulocytes # (auto) 0.04 K/uL (0.01-0.20); Immature Granulocytes % (auto) 0.4 %; Lymphocytes # (auto) 0.65 K/uL (1.20-3.40); Lymphocytes % (auto) 7.1 %; Mean Corpuscular Hgb Conc 34.3 g/dL (32.0-36.0); Mean Corpuscular Volume 84.5 fL (80.0-100.0); Mean Platelet Volume 9.8 fL (9.4-12.4); Monocytes % (auto) 5.5 %; Neutrophils # (auto) 7.94 K/uL (1.40-6.50); Neutrophils % (auto) 86.7 %; Platelet Count 198 K/uL (130-400); RDW Coefficient of Variation 12.8 % (11.5-14.5); RDW Standard Deviation 39.4 fL (36.4-46.3); Red Blood Count 4.38 M/uL (4.20-5.40); White Blood Count 9.16 K/ul (4.8-10.8)
--- NOTE | 2024-11-05 07:48 | Hospitalist Progress Note ---
Date of Service November 05, 2024 Assessment & Plan (1) Diverticulitis of intestine with abscess: Plan 54 year old with recent history of diverticulitis presents to the ER with abdominal pain starting day of admission. Prior admission 08/09-08/13 for colitis with abscess and recs for c-scope once recovered. Completed 14 day course abx (Cipro/Flagyl at dc) WBC 11.5k w/ L shift on admission CTAP on admission reporting "Long segment inflammatory changes of the rectosigmoid suggesting colitis and/or diverticulitis. Small extraluminal fluid abutting the sigmoid colon containing gas. Patient demonstrated larger abscess in the prior scan from August 2024. It is uncertain if this finding represents residual versus a recurrent process. Please clinically correlate with symptoms. Other complications such as fistula formation is difficult to exclude given crowding of the bowel structures in this area" #Diverticulitis with abscess Consult general surgery - continue IVF/NPO/abx until oral intake can be advanced Remains on Zosyn WBC trended down, normalized. Afebrile Electrolytes stable on cmp added for today, CO2 level normalized. Ca 9.3 and vit D checked prior for 10.4 ca on admission but could have been from dehydration/infection Discussed w/ Dr Borden, significant improvement on exam but plan to keep NPO today/continue IV abx and IVF and possible clear liquids in AM LR @ 125cc/hr x 3 bags ordered -- decreased to 100cc/hr and will cover through tomorrow and will reassess ongoing needs Discussed w/ patient and had c-scope scheduled for this upcoming week but will need rescheduled once resolved, possibly 2-3 months per surgery. Discussed and will plan for longer course abx as possible undertreated prior, consideration for augmentin x 3 wks at dc once stable. Appreciate recs/assistance from surgery and will have CM assist w/ rescheduling GI f/u when appropriate closer to dc DVT Proph: Lovenox SQ, pepcid added for GI proph Monitor labs, exam in AM Dispo: continued inpatient stay NPO on IV abx, possible dc next 24-48hr (more likely 2 days) pending course. Note: *Hx migraine, takes zolmitriptan 5mg prn at home. Was given Tylenol IV this morning and stable but can bring/sent to pharmacy if needed. Monitor in f/u Admission and Anticipated Discharge Date Admission Date: November 04, 2024 Supervising Physician Co-Signing Physician Notes The patient was not seen by me. The chart was reviewed. Case discussed with CHELSEA Beal. Agree with assessment and plan Subjective Eval this morning, resting in bed, surgeon in room. Patient feeling much better, significant improvement in abd pain. Was for her c- scope this upcoming week but will be rescheduled. Abd soft/no overt tenderness or rebound, good bowel sounds but no flatus. No hx IBD, can check calprotectin. Did have headache this AM, tylenol IV provided. Reports not worse, may have held it off. Takes zolmitriptan at baseline, can have bring down and send if needed. Keeping NPO for now, possible diet in AM. Per surgery, possible 3 week course abx at ok. Physical Exam 2 Physical Exam: General: 54yo female sitting up in bed, Dr Borden in room, NAD, appears comfortable HEENT: mmm, trachea midline Resp; even/unlabored, no wheezing or rales, on room air CV: RRR, no significant m/r/g GI: +BS, soft, slight tenderness deeper palpation LLQ however reports MUCH improved, no rebound/guarding/rigidity or peritoneal signs no garg MSK/Neuro/psych: Aox3, cooperative. nonfocal and not confused Results & Data Results & Data Vital Signs (Past 12 Hours) Vital Signs Temp Pulse Pulse Resp BP BP Pulse Ox 11/05/24 07:37 37.5 C 71 18 92/54 L 97 11/04/24 23:30 36.6 C 74 16 98/62 L 95 11/04/24 23:00 11/04/24 22:51 69 13 96 11/04/24 22:30 102/57 L 11/04/24 22:30 102/57 L 11/04/24 22:30 102/57 L 11/04/24 22:30 102/57 L 11/04/24 22:30 102/57 L 11/04/24 22:30 102/57 L 11/04/24 22:12 79 13 107/72 97 11/04/24 21:33 71 17 92/63 L 100 11/04/24 21:03 71 18 113/64 100 11/04/24 21:00 113/64 11/04/24 20:54 70 13 100 11/04/24 20:33 68 14 122/68 99 11/04/24 20:30 122/68 11/04/24 20:24 72 13 99 11/04/24 20:03 71 22 104/69 100 11/04/24 20:03 77 11/04/24 20:00 104/69 11/04/24 20:00 104/69 11/04/24 19:51 72 17 119/87 97 O2 Del Method 11/05/24 07:37 Room Air 11/04/24 23:30 Room Air 11/04/24 23:00 Room Air 11/04/24 22:51 11/04/24 22:30 11/04/24 22:30 11/04/24 22:30 11/04/24 22:30 11/04/24 22:30 11/04/24 22:30 11/04/24 22:12 11/04/24 21:33 11/04/24 21:03 11/04/24 21:00 11/04/24 20:54 11/04/24 20:33 11/04/24 20:30 11/04/24 20:24 11/04/24 20:03 11/04/24 20:03 11/04/24 20:00 11/04/24 20:00 11/04/24 19:51 Room Air Laboratory Results 11/05/24 06:05 11/04/24 18:30 Diagnostic Findings Abdomen/Pelvis CT 11/04/24 18:46 CT ABDOMEN and PELVIS with INTRAVENOUS CONTRAST HISTORY: Abdominal pain TECHNIQUE: CT abdomen and pelvis with contrast. IV CONTRAST: 100 mL of OMNIPAQUE 300 ENTERIC CONTRAST: Not Given COMPARISON: CT abdomen pelvis August 09, 2024. FINDINGS: LOWER CHEST: Unremarkable LIVER: Unchanged 7 mm hypodensity of the liver in the left lobe is likely a cyst or hemangioma. GALLBLADDER/BILIARY: Unremarkable gallbladder. No abnormal biliary dilatation. SPLEEN: Unremarkable. PANCREAS: Unremarkable. ADRENALS: Unremarkable. KIDNEYS: Unremarkable. No stones or hydronephrosis identified. PERITONEUM/RETROPERITONEUM. No lymphadenopathy by size criteria. No aortic aneurysm. GASTROINTESTINAL: No obstruction. No appendix. There are longstanding inflammatory changes in the rectosigmoid. Small extraluminal gas containing fluid abutting the sigmoid colon, for example series 2, image 63; series 300 image 69). REPRODUCTIVE: No pelvic masses identified. URINARY BLADDER: Unremarkable. BONES: No acute findings. IMPRESSION: Long segment inflammatory changes of the rectosigmoid suggesting colitis and/or diverticulitis. Small extraluminal fluid abutting the sigmoid colon containing gas. Patient demonstrated larger abscess in the prior scan from August 2024. It is uncertain if this finding represents residual versus a recurrent process. Please clinically correlate with symptoms. Other complications such as fistula formation is difficult to exclude given crowding of the bowel structures in this area Electronically signed by Vimal Holland 11-04-2024 8:07 PM PG Care Time/CCT Total # of Minutes Spent Total Time Spent with Patient: Total time spent is greater than 50% in coordination of care (as documented) at patient's floor/unit and/or counseling patient: Coding Level of Care Code 87477 SUB INP/OBS CARE MIN Diagnoses Diverticulitis of intestine with abscess K57.80 Diverticulitis bleeding: unspecified bleeding status Diverticulitis site: unspecified part of intestinal tract (1) Diverticulitis of intestine with abscess Diverticulitis bleeding: unspecified bleeding status Diverticulitis site: u nspecified part of intestinal tract Qualified Code(s): K57.80 - Diverticulitis of intestine, part unspecified, with perforation and abscess without bleeding
[2024-11-05] MEDS: ACETAMINOPHEN 1,000 MG/100 ML VIAL IV PRN (08:06)
[2024-11-05] MEDS: ENOXAPARIN INJ 40 MG/0.4 ML SYR SQ SCH (08:09)
[2024-11-05] MEDS: FAMOTIDINE 20MG IV PUSH 20 MG/5 ML SYR IV SCH (09:13)
[2024-11-05 10:11] LABS: Albumin Globulin Ratio 1.6 (0.9-2); Albumin Level 3.9 gm/dl (3.4-5.0); BUN Creatinine Ratio 18.6 (10-20); Bilirubin,Total 2.1 mg/dl (0.2-1.0); Calcium 9.3 mg/dl (8.6-10.3); Globulin 2.4 gm/dl (2.5-4.0); Magnesium 1.9 mg/dl (1.7-2.4); Potassium 3.7 mmol/L (3.5-5.1); Total Protein 6.3 gm/dl (6.0-8.3)
--- NOTE | 2024-11-06 06:43 | Surgery Progress Note ---
Date of Service November 06, 2024 Assessment & Plan (1) Diverticulitis: Plan: The patient has been admitted on the hospitalist service. From surgery perspective we recommend the following: Continue n.p.o. status with an occasional ice chips for comfort for the pr esent time; consideration will be given to advancing diet beginning with clear liquids if she continues to improve and her labs are stable Continue to hydrate with IV fluids while n.p.o. and until oral intake can be advanced and is reliable Continue antibiotics in the form of Zosyn Check a.m. labs when available Mobilize as able Lovenox is in place for DVT prevention As above. Continues to improve. Will initiate clear liquids and see how she does. Admission and Anticipated Discharge Date Admission Date: November 04, 2024 Subjective Patient notes that she has improved significantly since admission. She notes previously noted abdominal pain is markedly improved. She denies any nausea or vomiting. She notes that she had 2 bowel movements since admission. Physical Exam Gastrointestinal (Abdomen): Abdomen is soft without distention. There is no pain noted with palpation Results & Data Vital Signs (Past 12 Hours) Vital Signs Temp Pulse Resp BP Pulse Ox O2 Del Method 11/05/24 19:29 37 C 91 H 16 112/55 L 96 Room Air PG Care Time/CCT Total # of Minutes Spent Total Time Spent with Patient: Total time spent is greater than 50% in coordination of care (as documented) at patient's floor/unit and/or counseling patient: Coding Level of Care Code 71638 SUB INP/OBS CARE 08/27MIN Diagnoses Diverticulitis K57.92
[2024-11-06 06:44] LABS: Basophils # (auto) 0.02 K/uL (0.00-0.20); Basophils % (auto) 0.2 %; Hematocrit (blood only) 35.9 % (37.0-47.0); Hemoglobin 12.3 g/dl (12.0-16.0); Immature Granulocytes # (auto) 0.05 K/uL (0.01-0.20); Immature Granulocytes % (auto) 0.5 %; Lymphocytes # (auto) 1.08 K/uL (1.20-3.40); Mean Corpuscular Hemoglobin 29.1 pg (25.0-34.0); Mean Corpuscular Hgb Conc 34.3 g/dL (32.0-36.0); Mean Corpuscular Volume 85.1 fL (80.0-100.0); Mean Platelet Volume 10.2 fL (9.4-12.4); Monocytes # (auto) 0.46 K/uL (0.11-0.59); Monocytes % (auto) 4.3 %; Neutrophils # (auto) 9.15 K/uL (1.40-6.50); Platelet Count 191 K/uL (130-400); RDW Coefficient of Variation 12.8 % (11.5-14.5); RDW Standard Deviation 39.5 fL (36.4-46.3); Red Blood Count 4.22 M/uL (4.20-5.40); White Blood Count 10.76 K/ul (4.8-10.8)
[2024-11-06 07:01] LABS: Albumin Level 3.5 gm/dl (3.4-5.0); BUN Creatinine Ratio 23.9 (10-20); Bilirubin Direct 0.5 mg/dl (0-0.2); Bilirubin,Total 3.3 mg/dl (0.2-1.0); Magnesium 1.9 mg/dl (1.7-2.4); Potassium 3.5 mmol/L (3.5-5.1)
--- NOTE | 2024-11-06 08:04 | Discharge Summary ---
Discharge Summary Date of Service November 06, 2024 Principal Dx & Hospital Course #1 = Principal Diagnosis (1) Diverticulitis of intestine with abscess: Plan 54 year old with recent history of diverticulitis presents to the ER with ab dominal pain starting day of admission. Prior admission 08/09-08/13 for colitis with abscess and recs for c-scope once recovered. Completed 14 day course abx (Cipro/Flagyl at dc) WBC 11.5k w/ L shift on admission CTAP on admission reporting "Long segment inflammatory changes of the rectosigmoid suggesting colitis and/or diverticulitis. Small extraluminal fluid abutting the sigmoid colon containing gas. Patient demonstrated larger abscess in the prior scan from August 2024. It is uncertain if this finding represents residual versus a recurrent process. Please clinically correlate with symptoms. Other complications such as fistula formation is difficult to exclude given crowding of the bowel structures in this area" #Diverticulitis with abscess Consult general surgery - continue IVF/NPO/abx until oral intake can be advanced Remains on Zosyn WBC trended down, normalized. Afebrile Electrolytes stable on cmp added for today, CO2 level normalized. Ca 9.3 and vit D checked prior for 10.4 ca on admission but could have been from dehydration/infection Discussed w/ Dr Borden, significant improvement on exam but plan to keep NPO today/continue IV abx and IVF and possible clear liquids in AM LR @ 125cc/hr x 3 bags ordered -- decreased to 100cc/hr and will cover through tomorrow and will reassess ongoing needs Discussed w/ patient and had c-scope scheduled for this upcoming week but will need rescheduled once resolved, possibly 2-3 months per surgery. Discussed and will plan for longer course abx as possible undertreated prior, consideration for augmentin x 3 wks at dc once stable. Appreciate recs/assistance from surgery and will have CM assist w/ rescheduling GI f/u when appropriate closer to dc DVT Proph: Lovenox SQ, pepcid added for GI proph Monitor labs, exam in AM Dispo: continued inpatient stay NPO on IV abx, possible dc next 24-48hr (more likely 2 days) pending course. Note: *Hx migraine, takes zolmitriptan 5mg prn at home. Was given Tylenol IV this morning and stable but can bring/sent to pharmacy if needed. Monitor in f/u 11/06 LR@80cc/hr for now until see if able to adv to clear liquids. Zosyn IV continued. WBC wnl but slight L shift however remains afebrile. BM x 2 reported. TB elevated 3.3/DB 0.5. Admission HPI Per Admitting Provider Aileen Gregory is a 54-year-old female who presents to the ER with abdominal pain. She was recently diagnosed with diverticulitis and abscess in August and discharged on ciprofloxacin and metronidazole. No repeat CT was performed and she was due to have a follow up colonoscopy on Thursday. The same abdominal pain restarted just earlier today around 4pm. No fever, chills, nausea or vomiting. She has been having bowel movements but amy just feels she needs to go and nothing comes out. Abdominal pain is suprapubic, severity 6-7/10, currently the worst it has been, acetaminophen helped last admission but not yet tried this. It is better on lying down and worse on palpation. No change with bowel movements. She has a stated Augmentin allergy but tolerated IV Zosyn last admission. Discharge Plan Discharge Items Reason For Visit: COMPLICATED DIVERTICULITIS Follow-up/Referrals: Jamal Ku [Primary Care Provider] - Medications and DC Order Prescriptions: No Action valacyclovir 500 mg tablet 500 mg PO DAILY PRN (Reason: herpes breakout) Qty: 30 2RF Suflave 178.7-7.3-0.5 gram recon soln See Rx Instructions PO .COMPLEX Qty: 2 0RF Rx Instructions: OR COLONOSCOPY ON 11/08/24 orally; orally; TAKE FIRST DOSE AT 6 PM AND SECOND DOSE 6 HOURS PRIOR TO PROCEDURE BIN: [id number] N: 2000 GROUP: [id number] multivitamin [Daily Multi-Vitamin] Tablet 1 tab PO QAM Rx Instructions: ON HOLD FOR COLONOSCOPY ON 11/08/24 calcium citrate-vitamin D3 315 mg-5 mcg (200 unit) tablet 1 tab PO QAM zolmitriptan [Zomig] 5 mg tablet 5 mg PO Q2H PRN (Reason: Migraine Headache) Rx Instructions: do not exceed 2 doses per 24 hrs Probiotic 20 billion cell Capsule 20,000 mmu cells PO DAILY Rx Instructions: administer with a meal Admission Data Admit Date/Time: 11/04/24 20:29 Attending Provider: Davey Parrish Admit Provider: Carson Plasencia Primary Care Provider: Jamal Ku Other Providers: Eleazar Borden; Carson Plasencia Hospital Stay Data Consultations 11/04/24 20:17 Consult General Surgery Stat 11/04/24 20:19 ED Decision to Admit Stat 11/05/24 16:42 Consult [facility] sanitizer Routine Diagnostic Imagining Performed 11/04/24 18:46 CT abd pelvis IV con only Stat Coding Diagnoses Diverticulitis of intestine with abscess K57.80 Diverticulitis bleeding: unspecified bleeding status Diverticulitis site: unspecified part of intestinal tract
[2024-11-06] MEDS: LACTATED RINGER'S 1,000 ML IV SCH (08:38)
--- NOTE | 2024-11-06 08:41 | Hospitalist Progress Note ---
Date of Service November 06, 2024 Assessment & Plan (1) Diverticulitis of intestine with abscess: Plan 54 year old with recent history of diverticulitis presents to the ER with abdominal pain starting day of admission. Prior admission 08/09-08/13 for colitis with abscess and recs for c-scope once recovered. Completed 14 day course abx (Cipro/Flagyl at ca) WBC 11.5k w/ L shift on admission CTAP on admission reporting "Long segment inflammatory changes of the rectosigmoid suggesting colitis and/or diverticulitis. Small extraluminal fluid abutting the sigmoid colon containing gas. Patient demonstrated larger abscess in the prior scan from August 2024. It is uncertain if this finding represents residual versus a recurrent process. Please clinically correlate with symptoms. Other complications such as fistula formation is difficult to exclude given crowding of the bowel structures in this area" #Diverticulitis with abscess Consult general surgery Zosyn IV continued WBC normalized IVF continued, decreased rate for now +BM x 2, calprotectin if able to collect TB elevated but no RUQ pain, ?2nd to Zosyn vs other. Monitor on repeat Possible clears for lunch Pain control/antiemetics as needed Lovenox SQ for DVT proph, pepcid for GI proph Monitor labs, exam in AM At ca, discussed w/ surgery about re-scheduling c-scope 2-3 month and plan for 3 wk course abx w/ Augmentin for possible undertreatment prior. Appreciate recs/assistance from surgery and will have CM assist w/ rescheduling GI f/u when appropriate closer to ca Dispo: remains inpatient on IV abx, possible clears this afternoon Admission and Anticipated Discharge Date Admission Date: November 04, 2024 Supervising Physician Co-Signing Physician Notes The patient was not seen by me. The chart was reviewed. Case discussed with CHELSEA Beal. Agree with assessment and plan Subjective Eval this morning, doing well. Pain improved. Moving bowels. Seen by surgery BYRON and discussed possible clear for lunch, not yet seen by Dr Borden. No RUQ pain, US to be cancelled. Discussed to monitor/alert if any worse pain w/ adv of diet potentially this afternoon. She is going to call to cancel her c-scope and appreciates if able to assist w/ reschedule. Questions/concerns addressed at this time. Physical Exam 2 Physical Exam: General: 54yo female sitting up in bed, NAD, appears improved HEENT: mmm, trachea midline Resp; even/unlabored, no wheezing or rales, on room air CV: RRR, no significant m/r/g GI: +BS, soft, no further significant tenderness (minimal deep LLQ), no rebound/guarding/rigidity or peritoneal signs no garg MSK/Neuro/psych: Aox3, cooperative. nonfocal and not confused Results & Data Results & Data Vital Signs (Past 12 Hours) Vital Signs Temp Pulse Resp BP Pulse Ox O2 Del Method 11/06/24 08:33 36.7 C 69 16 105/65 96 Room Air Laboratory Results 11/06/24 06:13 11/06/24 06:13 PG Care Time/CCT Total # of Minutes Spent Total Time Spent with Patient: Total time spent is greater than 50% in coordination of care (as documented) at patient's floor/unit and/or counseling patient: Coding Level of Care Code 39785 SUB INP/OBS CARE 3/50MIN Diagnoses Diverticulitis of intestine with abscess K57.80 Diverticulitis bleeding: unspecified bleeding status Diverticulitis site: unspecified part of intestinal tract (1) Diverticulitis of intestine with abscess Diverticulitis bleeding: unspecified bleeding status Diverticulitis site: u nspecified part of intestinal tract Qualified Code(s): K57.80 - Diverticulitis of intestine, part unspecified, with perforation and abscess without bleeding
--- NOTE | 2024-11-07 08:02 | Hospitalist Progress Note ---
Date of Service November 07, 2024 Assessment & Plan (1) Diverticulitis of intestine with abscess: Plan 54 year old with recent history of diverticulitis presents to the ER with abdominal pain starting day of admission. Prior admission 08/09-08/13 for colitis with abscess and recs for c-scope once recovered. Completed 14 day course abx (Cipro/Flagyl at nv) WBC 11.5k w/ L shift on admission CTAP on admission reporting "Long segment inflammatory changes of the rectosigmoid suggesting colitis and/or diverticulitis. Small extraluminal fluid abutting the sigmoid colon containing gas. Patient demonstrated larger abscess in the prior scan from August 2024. It is uncertain if this finding represents residual versus a recurrent process. Please clinically correlate with symptoms. Other complications such as fistula formation is difficult to exclude given crowding of the bowel structures in this area" #Diverticulitis with abscess Consult general surgery Zosyn IV WBC wnl, afebrile Clear liquid diet continued for today, avoid advancing for now unless continued imprvoement at dinner could consider full liquids per discussion w/ BYRON in room Probiotic ordered, monitor for worsening diarrhea on abx/test for cdiff if occurs Stool calprotectin level sent to eval any underlying IBD- will need f/u Pain control, antiemetics as needed Lovenox SQ for DVT proph, pepcid for GI proph F/u labs from this morning -- prior TB elevation but no RUQ pain on exam. Appreciate recs/assistance from surgery and will have CM assist w/ rescheduling GI f/u when appropriate closer to nv Dispo: remains inpatient on IV abx, possible full liquids this evening vs tomorrow. At [facility], discussed w/ surgery about re-scheduling c-scope 2-3 month and plan for 3 wk course abx w/ Augmentin for possible undertreatment prior. Hopeful dc next 24-48 hrs pending course Admission and Anticipated Discharge Date Admission Date: November 04, 2024 Subjective Eval this morning, ambulating in the room. No increased pain since eating but does get sensation at times. Slight tenderness deep palpation LLQ/lower abd, soft and moving bowels (now loose) Discussed given complicated diverticulitis and concerns for worse if adv, will continue clear liquid for today. If lunch goes better/less pain could consider full liquid at dinner but otherwise continue course. No CP/SOb. Physical Exam 2 Physical Exam: General: 54yo female ambulating in the room, NAD HEENT: mmm, trachea midline Resp; even/unlabored, no wheezing or rales, on room air CV: RRR, no significant m/r/g GI: +BS, soft, no further significant tenderness (minimal deep LLQ/lower abd), no rebound/guarding/rigidity or peritoneal signs no garg MSK/Neuro/psych: Aox3, cooperative. nonfocal and not confused Results & Data Results & Data Vital Signs (Past 12 Hours) Vital Signs Temp Pulse Pulse Resp BP Pulse Ox O2 Del Method 11/07/24 07:50 36.8 C 76 16 104/68 97 Room Air 11/06/24 20:30 37.2 C 80 18 108/64 97 Room Air Laboratory Results 11/06/24 06:13 11/06/24 06:13 Stool calprotectin pending PG Care Time/CCT Total # of Minutes Spent Total Time Spent with Patient: Total time spent is greater than 50% in coordination of care (as documented) at patient's floor/unit and/or counseling patient: Coding Level of Care Code 41671 SUB INP/OBS CARE 235MIN Diagnoses Diverticulitis of intestine with abscess K57.80 Diverticulitis bleeding: unspecified bleeding status Diverticulitis site: unspecified part of intestinal tract (1) Diverticulitis of intestine with abscess Diverticulitis bleeding: unspecified bleeding status Diverticulitis site: u nspecified part of intestinal tract Qualified Code(s): K57.80 - Diverticulitis of intestine, part unspecified, with perforation and abscess without bleeding
[2024-11-07] MEDS: ADVANCED PROBIOTIC 625 MG CAPSULE PO SCH (09:26)
--- NOTE | 2024-11-07 10:02 | Surgery Progress Note ---
Date of Service November 07, 2024 Assessment & Plan (1) Diverticulitis: Plan: Continue with clear liquids for now, if patient does well with lunch without any worsening pain or cramping can consider fulls for dinner vs tomorrow morning. Continue antibiotics Pending a.m. labs Mobilize as able Lovenox is in place for DVT prevention Admission and Anticipated Discharge Date Admission Date: November 04, 2024 Subjective Patient doing well this morning however states after eating clears for breakfast and does have some cramping this morning but states otherwise pain is manageable. Denies any nausea or vomiting Is having loose bowel movements Afebrile and WBC pending this AM. Still on IV antibiotics Physical Exam Constitutional: WD/WN, vitals as above Respiratory: normal respiratory effort, lungs clear to auscultation Cardiovascular: RRR, no murmur, no edema Gastrointestinal (Abdomen): Abdomen soft, nondistended, +TTP over LLQ and lower abdominal region without rebound or guarding. Skin: no rashes, warm and dry Results & Data Vital Signs (Past 12 Hours) Vital Signs Temp Pulse Resp BP Pulse Ox O2 Del Method 11/07/24 07:50 36.8 C 76 16 104/68 97 Room Air PG Care Time/CCT Total # of Minutes Spent Total Time Spent with Patient: Total time spent is greater than 50% in coordination of care (as documented) at patient's floor/unit and/or counseling patient: Coding [place] [address] SUB INP/OBS CARE 08/27MIN Patient Type Established History Problem Focused Exam Problem Focused Medical Decision Making Straight Forward Diagnoses Diverticulitis K57.92
[2024-11-07 11:05] LABS: Basophils # (auto) 0.03 K/uL (0.00-0.20); Basophils % (auto) 0.4 %; Eosinophils # (auto) 0.03 K/uL (0.00-0.50); Eosinophils % (auto) 0.4 %; Hematocrit (blood only) 40.5 % (37.0-47.0); Hemoglobin 13.2 g/dl (12.0-16.0); Immature Granulocytes # (auto) 0.02 K/uL (0.01-0.20); Immature Granulocytes % (auto) 0.2 %; Lymphocytes # (auto) 1.84 K/uL (1.20-3.40); Mean Corpuscular Hemoglobin 28.4 pg (25.0-34.0); Mean Corpuscular Hgb Conc 32.6 g/dL (32.0-36.0); Mean Corpuscular Volume 87.1 fL (80.0-100.0); Mean Platelet Volume 10.2 fL (9.4-12.4); Monocytes # (auto) 0.48 K/uL (0.11-0.59); Neutrophils # (auto) 5.61 K/uL (1.40-6.50); Platelet Count 223 K/uL (130-400); Red Blood Count 4.65 M/uL (4.20-5.40); White Blood Count 8.01 K/ul (4.8-10.8)
[2024-11-07 11:24] LABS: Albumin Globulin Ratio 1.3 (0.9-2); Albumin Level 4.1 gm/dl (3.4-5.0); BUN Creatinine Ratio 11.1 (10-20); Calcium 9.4 mg/dl (8.6-10.3); Globulin 3.1 gm/dl (2.5-4.0); Magnesium 2.1 mg/dl (1.7-2.4); Total Protein 7.2 gm/dl (6.0-8.3)
[2024-11-07] MEDS: POTASSIUM CHLORIDE CRTAB 20 MEQ TABCR PO STA (14:10)
[2024-11-07] MEDS: POTASSIUM CHLORIDE CRTAB 20 MEQ TABCR PO ONE (18:14)
[2024-11-08 07:53] LABS: Albumin Globulin Ratio 1.3 (0.9-2); Albumin Level 3.5 gm/dl (3.4-5.0); BUN Creatinine Ratio 8.2 (10-20); Bilirubin,Total 1.6 mg/dl (0.2-1.0); Calcium 9.2 mg/dl (8.6-10.3); Creatinine Clr Calc Pharmacy 106.4 ml/min; Globulin 2.8 gm/dl (2.5-4.0); Magnesium 2.1 mg/dl (1.7-2.4); Potassium 3.8 mmol/L (3.5-5.1); Total Protein 6.3 gm/dl (6.0-8.3)
--- NOTE | 2024-11-08 09:01 | Surgery Progress Note ---
Date of Service November 08, 2024 Assessment & Plan (1) Diverticulitis: Plan: Continue with clear liquids for now, if patient does well with lunch without any worsening pain or cramping can consider fulls for dinner. Continue antibiotics Pending a.m. labs , continue to trend WBC Lovenox is in place for DVT prevention -Surgery will continue to follow as above. slowly improving. will re-evaluate later today for possible advancement to full liquids. Admission and Anticipated Discharge Date Admission Date: November 04, 2024 Subjective Patient doing well this morning however states after eating clears for breakfast and lunch yesterday she was having some more pain in her LLQ/lower abdomen. She remained on clears and she was able to tolerate dinner without any issues and pain was minimal. Denies any nausea or vomiting Continues to have bowel movements Afebrile and WBC pending this AM. Still on IV antibiotics Physical Exam Constitutional: WD/WN, vitals as above Respiratory: normal respiratory effort, lungs clear to auscultation Cardiovascular: RRR, no murmur, no edema Gastrointestinal (Abdomen): Abdomen soft, nondistended, +minimal TTP in the LLQ without rebound or guarding Skin: no rashes, warm and dry Results & Data Vital Signs (Past 12 Hours) Vital Signs Temp Pulse Resp BP Pulse Ox O2 Del Method 11/08/24 07:30 36.9 C 78 18 101/64 99 Room Air PG Care Time/CCT Total # of Minutes Spent Total Time Spent with Patient: Total time spent is greater than 50% in coordination of care (as documented) at patient's floor/unit and/or counseling patient: [place]oding [place] [address] SUB INP/OBS CARE 08/27MIN Patient Type Established Medical Decision Making Straight Forward Diagnoses Diverticulitis K57.92
--- NOTE | 2024-11-08 13:18 | Hospitalist Progress Note ---
Date of Service November 08, 2024 Assessment & Plan (1) Diverticulitis of intestine with abscess: Plan 54 year old with recent history of diverticulitis presented to the ER with abdominal pain starting day of admission. She was recently diagnosed with diverticulitis and abscess in August when she was treated with IV Zosyn and discharged on ciprofloxacin and metronidazole x [address]. [address] was performed and she was due to have a follow up colonoscopy on 11/08/24. Due to recurrence of similar abdominal pain as previously, she came to ED and was admitted for diverticulitis with CT A/P noting "a long segment of inflammatory changes in the rectosigmoid area suggesting colitis or diverticulitis. She did have a small amount of extraluminal fluid abutting the sigmoid colon containing gas" (the interpreting radiologist did not feel that this was as severe as what was noted on a CT scan in August 2024). #Diverticulitis with abscess General surgery consulted and following Now advanced to full liquid diet Continue IV Zosyn - transition to oral antibiotics on discharge and plan for total of 3 week antibiotic course (Augmentin listed as allergy but has tolerated Zosyn) Continue probiotic, monitor for worsening diarrhea on antibiotics/test for C. diff if occurs Pain control, antiemetics as needed T Bili remains elevated but down trending, no RUQ abdominal pain. Otherwise LFTs are WNL. Continue to monitor Recommend colonoscopy once recovered from this acute episode Stool calprotectin level sent to eval any underlying IBD - will need f/u Lovenox SQ for DVT proph, pepcid for GI proph Dispo: Anticipate discharge in next 24-48 hours pending diet advancement. Will need colonoscopy in 2-3 months. Discussed plan with general surgery team Admission and Anticipated Discharge Date Admission Date: November 04, 2024 Subjective Patient seen and evaluated in bedside chair. She reports improvement in her abdominal symptoms today. She tolerated her clear liquid diet well for breakfast and lunch, only minimal postprandial pain and denied any nausea today. Surgical team has advanced her diet to full liquids for dinner. She denies any additional questions or concerns at this time. Physical Exam Physical Exam: General: No acute distress, nondiaphoretic, well-developed, well-nourished. Cardiac: Well-perfused. Rates in 70s. Pulm: Normal respiratory effort. 99% on room air. Abdominal: Soft, nondistended. Minimal tenderness to deep palpation of lower quadrants. No guarding or rebound tenderness. Bowel sounds present. Neuro: A&O x3. No focal neurological deficits. Results & Data Results & Data Vital Signs (Past 12 Hours) Vital Signs Temp Pulse Resp BP Pulse Ox O2 Del Method 11/08/24 07:45 Room Air 11/08/24 07:30 98.4 F 78 18 101/64 99 Room Air Laboratory Results Reviewed CMP PG Care Time/CCT Total # of Minutes Spent Total Time Spent with Patient: Total time spent is greater than 50% in coordination of care (as documented) at patient's floor/unit and/or counseling patient: Coding Level of Care Code 90259 SUB INP/OBS CARE 235MIN Diagnoses Diverticulitis of intestine with abscess K57.80 Diverticulitis bleeding: unspecified bleeding status Diverticulitis site: unspecified part of intestinal tract (1) Diverticulitis of intestine with abscess Diverticulitis bleeding: unspecified bleeding status Diverticulitis site: unspecified part of intestinal tract Qualified Code(s): K57.80 - Diverticulitis of intestine, part unspecified, with perforation and abscess without bleeding
[2024-11-09 07:40] LABS: Albumin Globulin Ratio 1.3 (0.9-2); Albumin Level 3.5 gm/dl (3.4-5.0); BUN Creatinine Ratio 10.1 (10-20); Bilirubin,Total 1.2 mg/dl (0.2-1.0); Calcium 9.3 mg/dl (8.6-10.3); Globulin 2.7 gm/dl (2.5-4.0); Potassium 3.8 mmol/L (3.5-5.1); Total Protein 6.2 gm/dl (6.0-8.3)
[2024-11-09 08:01] VITALS: RESP 16; TEMP 97.7; O2SAT 98
--- NOTE | 2024-11-09 08:01 | Surgery Progress Note ---
Date of Service November 09, 2024 Assessment & Plan (1) Diverticulitis of intestine with abscess: Plan: pt on full liquids for dinner , tolerated well continue fulls for breakfast, may advance to low fiber for lunch continues to have flatus and BMs abd soft non distended, ttp pelvic regions vss, labs pending this am if stable ok for d/c later today Pt will need o/p colonoscopy in 8 weeks and oral abx on d/c will follow while in house Admission and Anticipated Discharge Date Admission Date: November 04, 2024 Subjective pt reports mild pelvic pressure with sitting denies f/c , n/v +bm +flatus Review of Systems Constitutional: no fever and no chills Respiratory: no dyspnea Cardiovascular: no chest pain Gastrointestinal: + abdominal pain; no nausea and no vomit ing Genitourinary: no dysuria Physical Exam Constitutional: cooperative and comfortable; no acute distress Respiratory: normal respiratory effort and able to speak in complete sentences; no respiratory distress Cardiovascular: Rate/Rhythm: regular rate Gastrointestinal (Abdomen): Inspection/Auscultation: abdomen not distended Percussion/Palpation: + abdomen tender (pelvic region ) and abdomen soft Results & Data Vital Signs (Past 12 Hours) Vital Signs Temp Pulse Resp BP Pulse Ox O2 Del Method 11/08/24 20:10 98.1 F 88 18 109/74 94 Room Air PG Care Time/CCT Total # of Minutes Spent Total Time Spent with Patient: Total time spent is greater than 50% in coordination of care (as documented) at patient's floor/unit and/or counseling patient: Coding Level of Care Code 22594 SUB INP/OBS CARE 08/27MIN Diagnoses Diverticulitis of intestine with abscess K57.80 Diverticulitis bleeding: unspecified bleeding status Diverticulitis site: unspecified part of intestinal tract (1) Diverticulitis of intestine with abscess Diverticulitis bleeding: unspecified bleeding status Diverticulitis site: unspecified part of intestinal tract Qualified Code(s): K57.80 - Diverticulitis of intestine, part unspecified, with perforation and abscess without bleeding
[2024-11-09 15:37] VITALS: BP 103/64; PULSE 62
--- NOTE | 2024-11-09 16:41 | Discharge Summary ---
Discharge Summary Date of Service November 09, 2024 Principal Dx & Hospital Course #1 = Principal Diagnosis (1) Diverticulitis of intestine with abscess: Plan 54 year old with recent history of diverticulitis presented to the ER with a bdominal pain starting day of admission. She was recently diagnosed with diverticulitis and abscess in August when she was treated with IV Zosyn and discharged on ciprofloxacin and metronidazole x [address] was performed and she was due to have a follow up colonoscopy on 11/08/24. Due to recurrence of similar abdominal pain as previously, she came to ED and was admitted for diverticulitis with CT A/P noting "a long segment of inflammatory changes in the rectosigmoid area suggesting colitis or diverticulitis. She did have a small amount of extraluminal fluid abutting the sigmoid colon containing gas" (the interpreting radiologist did not feel that this was as severe as what was noted on a CT scan in August 2024). #Diverticulitis with abscess General surgery consulted Diet advanced to low fiber, well-tolerated and recommended to continue for at least 1 week then advance as tolerated Treated with IV Zosyn while inpatient, discharged on Cipro 500 mg BID and Flagyl 500 mg BID through 11/25/24 to complete a total of 3 week antibiotic course (listed allergy to Augmentin, though tolerated Zosyn) Continue probiotic while on antibiotics T Bili elevated on admission, down trended. No RUQ abdominal pain. Otherwise LFTs are WNL Colonoscopy rescheduled for 02/21/25 Stool calprotectin level sent to eval any underlying IBD - needs f/u on results, will defer to PCP Lovenox SQ for DVT proph, pepcid for GI proph Dispo: Discharged home 11/09/24 Notes For Next Care Provider Please follow-up on stool calprotectin level Medication Changes From Visit Cipro 500 mg BID through 11/25 Flagyl 500 mg BID through 11/25 Discharge Exam General: No acute distress, nondiaphoretic, well-developed, well-nourished. Cardiac: Well-perfused. Rates in 80s. Pulm: Normal respiratory effort. 98% on room air. Abdominal: Soft, nondistended. Minimal tenderness to deep palpation of lower quadrants. No guarding or rebound tenderness. Bowel sounds present. Neuro: A&O x3. No focal neurological deficits. Discharge Plan Discharge Items Patient Disposition: Home - Self-Care Reason For Visit: COMPLICATED DIVERTICULITIS Discharge Diagnosis: Complicated diverticulitis Activity: Resume your previous activity Non-emergency contact: Primary Care Provider and Surgeon Call non-emergency contact if: you have any medication questions, your symptoms worsen and your pain is not controlled Follow-up/Referrals: Endoscopy Unit [Other] - 02/21/25 Eleazar Borden, [Surgeon] - (Follow-up as directed) Jamal Ku [Primary Care Provider] - (Follow-up in 1-2 weeks) Diet: Low Fiber and Other - See Diet Comment Diet Comment: Follow low fiber diet x 1 week, then advance as tolerated Addtl Attending Provider Instructions: Aileen, Gilmer were admitted to the hospital due to complicated diverticulitis. Diverticulitis is inflammation/infection of the outpouches of your colon. You were treated with IV antibiotics in the hospital, and will continue on an extended course of oral antibiotics at home. Your antibiotics have been sent to your [facility] pharmacy in [place]. Upon discharge from the hospital: * Start your antibiotics tonight, 11/09/24. Take one dose of both the Cipro and the Flagyl medications this evening, then tomorrow start the twice daily dosing. * Take Ciprofloxacin 500 mg twice daily through 11/25/24 to complete a total of 3 week antibiotic course. * Take Flagyl 500 mg twice daily through 11/25/24 to complete a total of 3 week antibiotic course. * Continue to follow a low fiber diet for at least 1 week then advance as tolerated. A low fiber diet hand out has been provided with your discharge papers. * Take a probiotic while on antibiotics to help prevent diarrhea or an opportunistic infection. Probiotics are available [id number], so no prescription is needed. * Take Tylenol as needed for pain. * Your colonoscopy has been rescheduled for 02/21/2025. * Follow-up with your PCP in 1-2 weeks. * A work note has been provided with your discharge paperwork. Please return to the hospital if you experience any of the following: fever of 100.5 F or higher, severe abdominal pain, persistent nausea or vomiting, bleeding with bowel movements, chest pain, shortness of breath, lightheadedness, passing out, confusion, or any other symptoms concerning for you. It was a pleasure taking care of you while you were in the hospital! Pending Studies at Discharge: Yes Studies:: Stool calprotectin level Stand-Alone Forms: My [facility], Work/School Release, Smoking Cessation Medications and DC Order Prescriptions: New ciprofloxacin HCl [Cipro] 500 mg tablet 500 mg PO BID Qty: 33 0RF metronidazole 500 mg tablet 500 mg PO BID Qty: 33 0RF Continued valacyclovir 500 mg tablet 500 mg PO DAILY PRN (Reason: herpes breakout) Qty: 30 2RF Suflave 178.7-7.3-0.5 gram recon soln See Rx Instructions PO .COMPLEX Qty: 2 0RF Rx Instructions: OR COLONOSCOPY ON 11/08/24 orally; orally; TAKE FIRST DOSE AT 6 PM AND SECOND DOSE 6 HOURS PRIOR TO PROCEDURE BIN: [id number] PCN: [id number] GROUP: [id number] multivitamin [Daily Multi-Vitamin] Tablet 1 tab PO QAM Rx Instructions: ON HOLD FOR COLONOSCOPY ON 11/08/24 calcium citrate-vitamin D3 315 mg-5 mcg (200 unit) tablet 1 tab PO QAM zolmitriptan [Zomig] 5 mg tablet 5 mg PO Q2H PRN (Reason: Migraine Headache) Rx Instructions: do not exceed 2 doses per 24 hrs Probiotic 20 billion cell Capsule 20,000 mmu cells PO DAILY Rx Instructions: administer with a meal Discharge Orders: Discharge Order (Routine); Ordered 11/09/24 Ordered By: Kalpana Minaya/Other Patient Handouts: Low-Fiber Diet, Diverticulitis Dc Admission Data Admit Date/Time: 11/04/24 20:29 Attending Provider: Allen Ortiz Admit Provider: Carson Plasencia Primary Care Provider: Jamal Ku Other Providers: Eleazar Borden; Carsno Plasencia Other Interventions: Discharge Summary Assessment (RN) Last Done: 11/09/24 15:35 Hospital Stay Data Consultations 11/04/24 20:17 Consult General Surgery Stat 11/04/24 20:19 ED Decision to Admit Stat 11/05/24 16:42 Consult [facility] process assistant Routine Diagnostic Imagining Performed Abdomen/Pelvis CT 11/04/24 18:46 CT ABDOMEN and PELVIS with INTRAVENOUS CONTRAST HISTORY: Abdominal pain TECHNIQUE: CT abdomen and pelvis with contrast. IV CONTRAST: 100 mL of OMNIPAQUE 300 ENTERIC CONTRAST: Not Given COMPARISON: CT abdomen pelvis August 09, 2024. FINDINGS: LOWER CHEST: Unremarkable LIVER: Unchanged 7 mm hypodensity of the liver in the left lobe is likely a cyst or hemangioma. GALLBLADDER/BILIARY: Unremarkable gallbladder. No abnormal biliary dilatation. SPLEEN: Unremarkable. PANCREAS: Unremarkable. ADRENALS: Unremarkable. KIDNEYS: Unremarkable. No stones or hydronephrosis identified. PERITONEUM/RETROPERITONEUM. No lymphadenopathy by size criteria. No aortic aneurysm. GASTROINTESTINAL: No obstruction. No appendix. There are longstanding inflammatory changes in the rectosigmoid. Small extraluminal gas containing fluid abutting the sigmoid colon, for example series 2, image 63; series 300 image 69). REPRODUCTIVE: No pelvic masses identified. URINARY BLADDER: Unremarkable. BONES: No acute findings. IMPRESSION: Long segment inflammatory changes of the rectosigmoid suggesting colitis and/or diverticulitis. Small extraluminal fluid abutting the sigmoid colon containing gas. Patient demonstrated larger abscess in the prior scan from August 2024. It is uncertain if this finding represents residual versus a recurrent process. Please clinically correlate with symptoms. Other complications such as fistula formation is difficult to exclude given crowding of the bowel structures in this area Electronically signed by Vimal Holland 11-04-2024 8:07 PM Pending Results Patient Have Any Pending Studies at Discharge: Yes Discharge Instructions Given to Patient (Per Discharging Provider) Aileen, Gilmer were admitted to the hospital due to complicated diverticulitis. Diverticulitis is inflammation/infection of the outpouches of your colon. You were treated with IV antibiotics in the hospital, and will continue on an extended course of oral antibiotics at home. Your antibiotics have been sent to your [facility] pharmacy in [place]. Upon discharge from the hospital: * Start your antibiotics tonight, 11/09/24. Take one dose of both the Cipro and the Flagyl medications this evening, then tomorrow start the twice daily dosing. * Take Ciprofloxacin 500 mg twice daily through 11/25/24 to complete a total of 3 week antibiotic course. * Take Flagyl 500 mg twice daily through 11/25/24 to complete a total of 3 week antibiotic course. * Continue to follow a low fiber diet for at least 1 week then advance as tolerated. A low fiber diet hand out has been provided with your discharge papers. * Take a probiotic while on antibiotics to help prevent diarrhea or an opportunistic infection. Probiotics are available [id number], so no prescription is needed. * Take Tylenol as needed for pain. * Your colonoscopy has been rescheduled for 02/21/2025. * Follow-up with your PCP in 1-2 weeks. * A work note has been provided with your discharge paperwork. Please return to the hospital if you experience any of the following: fever of 100.5 F or higher, severe abdominal pain, persistent nausea or vomiting, bleeding with bowel movements, chest pain, shortness of breath, lightheadedness, passing out, confusion, or any other symptoms concerning for you. It was a pleasure taking care of you while you were in the hospital! Total Time Total Time Spent Total Time Spent (In Minutes): Greater than 30 minutes spent completing this discharge process including direct patient care, medication reconciliation, documentation, review of labs and images, and coordination of care. Coding Level of Care Code 12496 INP/OBS DISCH >30 MIN Diagnoses Diverticulitis of intestine with abscess K57.80 Diverticulitis bleeding: unspecified bleeding status Diverticulitis site: unspecified part of intestinal tract
== END 2024-11-09 15:59 | disposition home or self-care (01) | DRG 392 ==
LOC: ED 17:59 → EDINP 20:29 → SUATTDRO 20:29 → 3E 23:00